=== PATIENT | female | born 2000 | race Caucasian/White ===

== ENCOUNTER 2022-01-21 10:10 | Emergency (ER) | payer OTHER ==
[2022-01-21 10:28] VITALS: BP 146/109
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
[2022-01-21] MEDS: ACETAMINOPHEN 325 MG TABLET PO STA (11:19)
[2022-01-21] MEDS: IBUPROFEN 600 MG TABLET PO STA (11:19)
[2022-01-21] MEDS: LORazepam 1 MG TABLET PO STA (11:51)
== END 2022-01-21 11:52 | disposition home or self-care (01) ==
LOC: ED 10:10
DX: S90.31XA Contusion of right foot, initial encounter (principal); S80.01XA Contusion of right knee, initial encounter; V49.40XA Driver injured in collision with unspecified motor vehicles in traffic accident, initial encounter
CPT/HCPCS: 73564; 73630; 99282; 99283; A9270; J8499